=== PATIENT | male | born 2000 | race Two or more races ===

== ENCOUNTER 2020-09-09 10:15 | Emergency (ER) | payer OTHER ==
[~2020-09-09] VITALS: Ht 182.9 cm; Wt 72.6 kg
== END 2020-09-09 12:13 | disposition home or self-care (01) ==
LOC: ER 10:15
DX: S61.241A Puncture wound with foreign body of left index finger without damage to nail, initial encounter (principal); W46.0XXA Contact with hypodermic needle, initial encounter; Y93.89 Activity, other specified; Y92.69 Other specified industrial and construction area as the place of occurrence of the external cause; Y99.8 Other external cause status

== ENCOUNTER 2020-11-16 12:25 | Emergency (ER) | payer OTHER ==
[~2020-11-16] VITALS: Ht 182.9 cm; Wt 77.1 kg
[2020-11-16] MEDS ORDERED: ONDANSETRON ODT4 MG PO (16:27)
[2020-11-16] MEDS ORDERED: INTESTINEX680 M1 PO (16:27)
[2020-11-16] MEDS ORDERED: PEPCID AC20 MG PO (16:27)
== END 2020-11-16 16:35 | disposition home or self-care (01) ==
LOC: ER 12:25
DX: B34.9 Viral infection, unspecified (principal); E86.0 Dehydration; K29.70 Gastritis, unspecified, without bleeding

== ENCOUNTER → 2020-12-16 | Outpatient (CLI) | payer OTHER ==
[~2020-12-16] MED LIST: INTESTINEX680 M1 PO; ONDANSETRON ODT4 MG PO; PEPCID AC20 MG PO
== END | disposition home or self-care (01) ==
LOC: LAB 14:45
PROVIDERS: ATTEND Emergency Medicine Pediatric Emergency Medicine
DX: Z03.818 Encounter for observation for suspected exposure to other biological agents ruled out (principal)

== ENCOUNTER → 2021-04-12 | Emergency (ER) | payer OTHER ==
[~2021-04-12] VITALS: Ht 182.9 cm; Wt 72.6 kg
== END | disposition home or self-care (01) ==
LOC: ER 07:26
DX: K29.00 Acute gastritis without bleeding (principal); Z03.818 Encounter for observation for suspected exposure to other biological agents ruled out

== ENCOUNTER 2021-04-29 11:12 | Outpatient (CLI) | payer OTHER | END 2021-04-29 11:20 | disposition home or self-care (01) | LOC: SONOGRAMA 11:12 | PROVIDERS: ATTEND Surgery | DX: R10.84 Generalized abdominal pain (principal); K59.09 Other constipation; K21.9 Gastro-esophageal reflux disease without esophagitis; K30 Functional dyspepsia; K62.5 Hemorrhage of anus and rectum ==

== ENCOUNTER 2021-05-04 06:00 | Day surgery (SDC) | payer OTHER | END 2021-05-04 10:00 | disposition home or self-care (01) | LOC: AMB-ENDOS 06:00 | PROVIDERS: ATTEND Surgery | DX: D13.1 Benign neoplasm of stomach (principal); K64.8 Other hemorrhoids; Z20.822 Contact with and (suspected) exposure to COVID-19 ==

== ENCOUNTER 2021-06-03 09:00 | Outpatient (CLI) | payer OTHER | END 2021-06-03 09:15 | disposition home or self-care (01) | LOC: PPH VACUNA 09:00 | PROVIDERS: ATTEND Emergency Medicine Pediatric Emergency Medicine | DX: Z23 Encounter for immunization (principal) ==

== ENCOUNTER 2021-06-06 11:18 | Emergency (ER) | payer OTHER ==
[~2021-06-06] VITALS: Ht 182.9 cm; Wt 72.6 kg
== END 2021-06-06 13:42 | disposition home or self-care (01) ==
LOC: ER 11:18
DX: S61.243A Puncture wound with foreign body of left middle finger without damage to nail, initial encounter (principal); W46.0XXA Contact with hypodermic needle, initial encounter; Y93.89 Activity, other specified; Y92.69 Other specified industrial and construction area as the place of occurrence of the external cause; Y99.8 Other external cause status

== ENCOUNTER 2022-01-17 10:41 | Emergency (ER) | payer OTHER ==
[~2022-01-17] VITALS: Ht 182.9 cm; Wt 72.6 kg
[2022-01-17] MEDS ORDERED: KETO10TA2 PO (14:30)
== END 2022-01-17 15:03 | disposition home or self-care (01) ==
LOC: ER 10:41
DX: M79.641 Pain in right hand (principal); M25.531 Pain in right wrist; Z91.013 Allergy to seafood; Z91.018 Allergy to other foods

== ENCOUNTER 2022-02-08 11:02 | Outpatient (CLI) | payer OTHER ==
[~2022-02-08 11:02] MED LIST changes: +KETO10TA2 PO
== END 2022-02-08 11:07 | disposition home or self-care (01) ==
LOC: PPH VACUNA 11:02
PROVIDERS: ATTEND Emergency Medicine Pediatric Emergency Medicine
DX: Z23 Encounter for immunization (principal)

== ENCOUNTER 2022-04-05 17:01 | Outpatient (CLI) | payer OTHER | END 2022-04-05 17:04 | disposition home or self-care (01) | LOC: LAB 17:01 | PROVIDERS: ATTEND Anesthesiology | DX: Z03.818 Encounter for observation for suspected exposure to other biological agents ruled out (principal) ==